=== PATIENT | female | born 1990 | race Caucasian/White ===

== ENCOUNTER 2017-04-17 15:06 | Emergency (ER) | payer OTHER ==
[~2017-04-17] VITALS: Ht 157.5 cm; Wt 59.0 kg
[2017-04-17 15:10] VITALS: BP 124/77
[2017-04-17] MEDS ORDERED: AMOX500T PO (15:36)
[2017-04-17] MEDS ORDERED: TRAM-48 PO (15:36)
--- NOTE | 2017-04-17 15:36 | PHYS DOC ---
Past Medical History Past Medical History: Other Additional Past Medical Histor: restless leg syndrome Past Surgical History: Cholecystectomy Additional Past Surgical Histo: hyperhydrosis Alcohol Use: None Drug Use: None Adult General Chief Complaint Chief Complaint: DENTAL PROBLEM HPI HPI Patient is a 27 [facility] who presents with exacerbation of chronic dental pain specifically of the left lower gum. Patient states she has dental insurance but it does not cover a root canal which she needs. She states she is not able to afford the root canal. Patient denies any fever or trismus. Review of Systems Review of Systems Constitutional: Denies fever or chills [] HENT: Left lower gum dental pain Musculoskeletal: Denies back pain or joint pain [] Integument: Denies rash or skin lesions [] Neurologic: Denies headache, focal weakness or sensory changes [] Allergies Allergies Allergies Coded Allergies Type Severity Reaction Last Updated Verified acetaminophen Allergy Intermediate 04/17/17 Yes codeine Allergy Intermediate 04/17/17 Yes Physical Exam Physical Exam Constitutional: Well developed, well nourished, no acute distress, non-toxic appearance. [] HENT: Normocephalic, atraumatic, bilateral external ears normal, oropharynx moist, no oral exudates, nose normal. [] Patient has dental decay in different stages throughout her teeth. No gum erythema or swelling is noted. Skin: Warm, dry, no erythema, no rash. [] Back: No tenderness, no CVA tenderness. [] Extremities: No tenderness, no cyanosis, no clubbing, ROM intact, no edema. [] Neurologic: Alert and oriented X 3, normal motor function, normal sensory function, no focal deficits noted. [] Psychologic: Affect normal, judgement normal, mood normal. [] Current Patient Data Vital Signs Vital Signs Date Time Temp Pulse Resp B/P (MAP) Pulse Ox O2 Delivery O2 Flow Rate FiO2 04/17/17 15:10 98.2 116 20 100 Room Air 98.2 EKG EKG [] Radiology/Procedures Radiology/Procedures [] Course & Med Decision Making Course & Med Decision Making Pertinent Labs and Imaging studies reviewed. (See chart for details) Patient has infected dental caries. Discharged with amoxicillin and Ultram for pain. Instructed to follow-up with her dentist or any dental school locally. Dragon Disclaimer Dragon Disclaimer This electronic medical record was generated, in whole or in part, using a voice recognition dictation system. Departure Departure Impression: Primary Impression: Infected dental caries Disposition: HOME, SELF-CARE Condition: STABLE Referrals: NO PCP (PCP) followup with a local dental school Patient Instructions: Dental Caries Additional Instructions: You were seen for infected dental caries. You must complete your antibiotics. Consider following up with a dental school it might be cheaper than a regular doctor. Scripts Tramadol Hcl (ULTRAM) 50 Mg Tablet 1 TAB PO Q6HRS, #20 TAB MUST FILL AMOXICILLIN PRIOR TO ULTRAM Prov: GRAHAM RAMOS APRN 04/17/17 Amoxicillin (AMOXICILLIN) 500 Mg Tablet 1 TAB PO TID, #30 TAB Prov: GRAHAM RAMOS APRN 04/17/17 GRAHAM RAMOS APRN Apr 17, 2017 15:36
== END 2017-04-17 15:46 | disposition home or self-care (01) ==
LOC: ER 15:06
DX: G89.29 Other chronic pain (principal); K08.89 Other specified disorders of teeth and supporting structures; Z88.6 Allergy status to analgesic agent; Z88.5 Allergy status to narcotic agent
CPT/HCPCS: 99283

== ENCOUNTER 2017-06-22 15:14 | Emergency (ER) | payer SELFPAY ==
[~2017-06-22] VITALS: Ht 157.5 cm; Wt 59.0 kg
[~2017-06-22 15:14] MED LIST: AMOX500T PO; TRAM-48 PO
[2017-06-22 15:21] VITALS: BP 133/64
[2017-06-22] MEDS ORDERED: TRAM-48 PO (15:56)
[2017-06-22] MEDS ORDERED: AMOX1TAB61 PO (15:56)
--- NOTE | 2017-06-22 15:57 | PHYS DOC ---
Past Medical History Past Medical History: Other Additional Past Medical Histor: restless leg syndrome Past Surgical History: Cholecystectomy Additional Past Surgical Histo: hyperhydrosis Alcohol Use: None Drug Use: None Adult General Chief Complaint Chief Complaint: EARACHE/EAR PAIN [facility] HPI Patient is a 27 year old female presents to the emergency department with a history of cough and congestion with sinus pressure for the last 6 days. She states she has right ear pain with drainage of clear to yellow and now brown color. Patient states she has been having sharp shooting pain 12/11. She had taken tramadol this AM with relief of pain. She denies fever, chill, nausea or vomiting. Patient states she has had sick contact with family members. Review of Systems Review of Systems Constitutional: Denies fever or chills [] Eyes: Denies change in visual acuity, redness, or eye pain [] HENT: nasal congestion, sinus pressure, right ear pain Respiratory: cough denies shortness of breath [] Cardiovascular: No additional information not addressed in HPI [] GI: Denies abdominal pain, nausea, vomiting, bloody stools or diarrhea [] : Denies dysuria or hematuria [] Musculoskeletal: Denies back pain or joint pain [] Integument: Denies rash or skin lesions [] Neurologic: Denies headache, focal weakness or sensory changes [] Endocrine: Denies polyuria or polydipsia [] All other systems were reviewed and found to be within normal limits, except as documented in this note. Allergies Allergies Allergies Coded Allergies Type Severity Reaction Last Updated Verified acetaminophen Allergy Intermediate 04/17/17 Yes codeine Allergy Intermediate 04/17/17 Yes Physical Exam Physical Exam Constitutional: Well developed, well nourished, no acute distress, non-toxic appearance. [] HENT: Normocephalic, atraumatic, bilateral external ears normal, oropharynx moist, no oral exudates, nose normal. Left TM normal. TM on the right appears ruptured, right ear drainage of brown color noted on cotton ball. Sinus tenderness noted to the frontal and maxillary sinus areas. Throat with erythema , no exudate with post nasal drip noted. Eyes: PERRLA, EOMI, conjunctiva normal, no discharge. [] Neck: Normal range of motion, no tenderness, supple, no stridor. [] Cardiovascular:Heart rate regular rhythm, no murmur [] Lungs & Thorax: Bilateral breath sounds clear to auscultation [] Skin: Warm, dry, no erythema, no rash. [] Extremities: No tenderness, no cyanosis, no clubbing, ROM intact, no edema. [] Neurologic: Alert and oriented X 3, normal motor function, normal sensory function, no focal deficits noted. [] Psychologic: Affect normal, judgement normal, mood normal. [] EKG EKG [] Radiology/Procedures Radiology/Procedures [] Course & Med Decision Making Course & Med Decision Making Pertinent Labs and Imaging studies reviewed. (See chart for details) Patient was instructed to the right ear clean and dry. Recommended that she prevent placing anything into the ear canal, avoid getting water into the ear. Patient will be placed on Augmentin for sinusitis. Tramadol for right ear pain. Patient was instructed this medication will cause drowsiness do not take if you need to be alert and oriented. She was instructed this medication may cause diarrhea, recommended the use of probiotics. Patient was was provided with discharge instructions, treatment regimen and followup recommendations with patient stating under stating. Patient will be discharged home in stable condition with recommendation to followup with PCP in 7-10 days. All questions and concerns have been answered at the patients beside. [] Dragon Disclaimer Dragon Disclaimer This electronic medical record was generated, in whole or in part, using a voice recognition dictation system. Departure Departure Impression: Primary Impression: Rupture of right tympanic membrane Additional Impression: Sinusitis Disposition: 01 HOME, SELF-CARE Condition: STABLE Referrals: NAT FLETCHER (PCP) Patient Instructions: Sinusitis, [id number], Tympanic Membrane Perforation- [facility] Additional Instructions: Activity as tolerated Medications as prescribed Avoid placing anything into the right ear canal, avoiding getting the right ear wet Tramadol may cause drowsiness do not take if you need to be alert and oriented Drink plenty of fluids. Followup with your primary care provider in 7-10 days Return to the emergency department as needed for signs and symptoms that become worse. Scripts Tramadol Hcl (ULTRAM) 50 Mg Tablet 1 TAB PO Q6HRS, #15 TAB Prov: BART ROTHMAN APRN 06/22/17 Amoxicillin/Potassium Clav (AUGMENTIN 875-125 TABLET) 1 Each Tablet 1 TAB PO BID, #20 TAB Prov: BART ROTHMAN TITLE I DIRECTOR 06/22/17 Problem Qualifiers Additional Impression: Sinusitis Sinusitis location: unspecified location Chronicity: acute Recurrence: not specified as recurrent Qualified Codes: J01.90 - Acute sinusitis, unspecified BART ROTHMAN TITLE I DIRECTOR Jun 22, 2017 15:57
== END 2017-06-22 16:03 | disposition home or self-care (01) ==
LOC: ER 15:14
DX: H72.91 Unspecified perforation of tympanic membrane, right ear (principal); J01.10 Acute frontal sinusitis, unspecified; J01.00 Acute maxillary sinusitis, unspecified; G25.81 Restless legs syndrome; Z88.6 Allergy status to analgesic agent; Z88.5 Allergy status to narcotic agent; Z90.49 Acquired absence of other specified parts of digestive tract
CPT/HCPCS: 99283

== ENCOUNTER 2017-09-27 17:00 | Emergency (ER) | payer SELFPAY | END 2017-09-27 18:49 | disposition home or self-care (01) | LOC: ER 17:00 | DX: H65.01 Acute serous otitis media, right ear (principal); F32.9 Major depressive disorder, single episode, unspecified; G25.81 Restless legs syndrome; Z90.49 Acquired absence of other specified parts of digestive tract; Z88.6 Allergy status to analgesic agent; Z88.5 Allergy status to narcotic agent | CPT/HCPCS: 99283 ==